=== PATIENT | male | born 1935 | race Caucasian/White ===

== ENCOUNTER 2021-02-07 11:29 | Inpatient (IN) | payer MEDICARE, BC ==
[~2021-02-07] VITALS: Ht 165.1 cm; Wt 88.2 kg
[2021-02-07] MEDS ORDERED: methylPREDNISolone SOD SUCC 125 MG/2 ML VL IV ONE (12:00)
[2021-02-07] MEDS ORDERED: AZITHROMYCIN 500MG/ 250ML 250 ML IV ONE (12:00)
[2021-02-07] MEDS ORDERED: ACETAMINOPHEN 500 MG TAB PO ONE ×2 (12:09→12:30)
[2021-02-07] MEDS ORDERED: REMDESIVIR PER PHARMACY 0 ML IV SCH (13:30)
[2021-02-07 14:27] LABS: Basophils # (auto) 0 10 ^3/uL (0-0.2); Basophils % (auto) 0.2 % (0.0-2.0); Eosinophils # (auto) 0 10 ^3/uL (0-0.8); Eosinophils % (auto) 0.1 % (0.0-7.0); Hematocrit 36.5 % (41.0-53.0); Hemoglobin 12.6 g/dL (13.5-17.5); Lymphocytes # (auto) 0.3 10 ^3/uL (0.4-5.4); Lymphocytes % (auto) 6.9 % (10.0-50.0); Mean Corpuscular Hemoglobin 31.5 pg (28.0-32.0); Mean Corpuscular Hgb Conc. 34.4 g/dL (32.0-36.0); Mean Corpuscular Volume 91.8 fL (80.0-100.0); Monocytes # (auto) 0.2 10 ^3/uL (0-1.3); Monocytes % (auto) 3.5 % (0.0-12.0); Neutrophils # (auto) 4.5 10 ^3/uL (1.6-8.6); Neutrophils % (auto) 89.3 % (37.0-80.0); Nucleated Red Blood Cells % 0.1 %; Red Blood Cells 3.98 10^6/uL (4.5-5.90); Red Cell Distribution Width 13.5 % (11.8-14.3)
[2021-02-07 14:31] LABS: Albumin 2.4 g/dL (3.4-5.0); Anion Gap 5 (5-15); Blood Urea Nitrogen 22 mg/dL (7-18); Calcium 8.2 mg/dL (8.5-10.1); Carbon Dioxide 26 mmol/L (21-32); Chloride 105 mmol/L (98-107); Glucose 137 mg/dL (74-106); Potassium 3.9 mmol/L (3.5-5.1); Sodium 136 mmol/L (136-145)
[2021-02-07 14:39] LABS: Alanine Aminotransferase 92 U/L (16-61); Alkaline Phosphatase 56 U/L (45-117); Aspartate Aminotransferase 119 U/L (15-37); BUN/Creatinine Ratio 23.4; Bilirubin, Total 1.2 mg/dL (0.2-1.0); GFR African American 98 mL/min; GFR Non-African American 81 mL/min; Total Protein 6.4 g/dL (6.4-8.2)
[2021-02-07 14:49] LABS: CRP High Sensitivity > 19.0 mg/dL (< 0.3)
[2021-02-07] MEDS ORDERED: MORPHINE SULFATE INJECTION 2 MG/ML SYRG IV PRN ×3 (15:30→18:15)
[2021-02-07] MEDS ORDERED: NITROGLYCERIN 0.4 MG SL TAB SL PRN ×2 (15:30→18:15)
[2021-02-07] MEDS ORDERED: REMDESIVIR 200 MG in NS 210ml LOADING DOSE ADULT IV ONE (18:00)
[2021-02-07] MEDS ORDERED: ENOXAPARIN SOD 100 MG/1 ML SYRINGE SC ONE (18:00)
[2021-02-07] MEDS ORDERED: FAMOTIDINE (10MG/ML) 2ML VL IV ONE (18:00)
[2021-02-07] MEDS: ALBUMIN 25% 100 ML IV SCH (18:00)
[2021-02-07] MEDS ORDERED: ALBUMIN 25% 100 ML IV ONE (18:00)
[2021-02-07] MEDS ORDERED: DOCUSATE SOD 100 MG CAP PO PRN (18:15)
[2021-02-07] MEDS ORDERED: hydrALAZINE HCL 20 MG/ML VL IV PRN (18:15)
[2021-02-07] MEDS ORDERED: METOCLOPRAMIDE HCL 5MG/ml INJ 2ml VIAL IV PRN (18:15)
[2021-02-07] MEDS ORDERED: HYDROcodone-ACET 5/325MG TAB PO PRN (18:15)
[2021-02-07] MEDS ORDERED: ALUM & MAG HYDROX-SIMETH LIQ(MAALOX) 30 ML PO PRN (18:15)
[2021-02-07] MEDS: FUROSEMIDE 20 MG/2 ML VIAL IV SCH (18:47)
[2021-02-07 18:48] LABS: Cholesterol 97 mg/dL (< 200)
[2021-02-07 18:53] LABS: HDL Cholesterol 44 mg/dL (40-59); LDL Cholesterol 51 mg/dL (< 100); Triglycerides 62 mg/dL (< 150)
[2021-02-07 18:55] LABS: Thyroid Stimulating Hormone 0.44 uIU/mL (0.358-3.74)
[2021-02-07] MEDS: BUDESONIDE (INHALATION) 180 MCG IH IN SCH (22:00)
[2021-02-07] MEDS: DOXYCYCLINE 100MG/250ML 250 ML IV SCH (22:00)
[2021-02-07] MEDS: ISOSORBIDE MONONITRATE 20 MG TAB PO SCH (22:00)
[2021-02-07] MEDS: POTASSIUM CHL 20 Meq TABLET PO SCH (22:00)
[2021-02-07] MEDS: ATORVASTATIN 20 MG TAB PO SCH (22:00)
[2021-02-07] MEDS: FAMOTIDINE (10MG/ML) 2ML VL IV SCH (22:17)
[2021-02-07] MEDS: LORazepam 0.5 MG TAB PO PRN (22:19)
[2021-02-08] MEDS: ALBUMIN 25% 100 ML IV SCH ×2 (02:00→10:00)
[2021-02-08] MEDS ORDERED: ALBUMIN 25% 50 ML IV ONE (02:28)
[2021-02-08] MEDS: FUROSEMIDE 20 MG/2 ML VIAL IV SCH ×2 (06:07→19:05)
[2021-02-08] MEDS: ENOXAPARIN SOD 100 MG/1 ML SYRINGE SC SCH ×2 (06:07→18:00)
[2021-02-08] MEDS: ALBUTEROL SULF HFA 90MCG INH 200DOSE IN PRN ×2 (06:48→21:42)
[2021-02-08] MEDS: BUDESONIDE (INHALATION) 180 MCG IH IN SCH ×2 (06:49→21:42)
[2021-02-08 07:09] LABS: Basophils # (auto) 0.1 10 ^3/uL (0-0.2); Basophils % (auto) 1.3 % (0.0-2.0); Eosinophils # (auto) 0 10 ^3/uL (0-0.8); Eosinophils % (auto) 0.1 % (0.0-7.0); Hematocrit 38.3 % (41.0-53.0); Hemoglobin 13.3 g/dL (13.5-17.5); Lymphocytes # (auto) 0.6 10 ^3/uL (0.4-5.4); Lymphocytes % (auto) 11.2 % (10.0-50.0); Mean Corpuscular Hgb Conc. 34.6 g/dL (32.0-36.0); Mean Corpuscular Volume 92.7 fL (80.0-100.0); Monocytes # (auto) 0.2 10 ^3/uL (0-1.3); Monocytes % (auto) 3.2 % (0.0-12.0); Neutrophils # (auto) 4.6 10 ^3/uL (1.6-8.6); Neutrophils % (auto) 84.2 % (37.0-80.0); Nucleated Red Blood Cells % 0.1 %; Red Blood Cells 4.14 10^6/uL (4.5-5.90); Red Cell Distribution Width 13.5 % (11.8-14.3); White Blood Cell 5.5 10^3/uL (4.4-10.8)
[2021-02-08 07:26] LABS: Potassium 3.8 mmol/L (3.5-5.1)
[2021-02-08 07:36] LABS: Albumin 3.1 g/dL (3.4-5.0); BUN/Creatinine Ratio 29.3; Bilirubin, Total 1.2 mg/dL (0.2-1.0); Calcium 8.4 mg/dL (8.5-10.1)
[2021-02-08] MEDS: DexAMETHasone SOD PHOS 10MG/1ML VIAL INJ IV SCH (11:11)
[2021-02-08] MEDS: ISOSORBIDE MONONITRATE 20 MG TAB PO SCH ×2 (11:11→22:41)
[2021-02-08] MEDS: DOXYCYCLINE 100MG/250ML 250 ML IV SCH ×2 (11:11→22:39)
[2021-02-08] MEDS: ZINC SULFATE 220mg CAP or TAB PO SCH (11:11)
[2021-02-08] MEDS: FAMOTIDINE (10MG/ML) 2ML VL IV SCH ×2 (11:11→22:38)
[2021-02-08] MEDS: ASPirin 81 mg TAB PO SCH (11:11)
[2021-02-08] MEDS: ASCORBIC ACID 1,000 MG TAB PO SCH (11:12)
[2021-02-08] MEDS: POTASSIUM CHL 20 Meq TABLET PO SCH ×2 (11:12→22:41)
[2021-02-08] MEDS: CHOLECALCIFEROL (VITD3) 2,000 UNIT CAP/TAB PO SCH (11:12)
[2021-02-08] MEDS: IVERMECTIN 3 MG TAB PO SCH (11:12)
[2021-02-08] MEDS ORDERED: REMDESIVIR 100mg 100 MG in SODIUM CHL 0.9% 230 ML IV SCH (15:00)
[2021-02-08] MEDS: LORazepam 0.5 MG TAB PO PRN (16:38)
[2021-02-08] MEDS: ACETAMINOPHEN 500 MG TAB PO PRN (22:00)
[2021-02-08] MEDS: ATORVASTATIN 20 MG TAB PO SCH (22:41)
[2021-02-08 23:26] VITALS: BP 136/89
[2021-02-09] VITALS (7 sets, daily range): BP systolic 98–175; BP diastolic 58–92
[2021-02-09] MEDS: LORazepam 0.5 MG TAB PO PRN (00:29)
[2021-02-09] MEDS: ENOXAPARIN SOD 100 MG/1 ML SYRINGE SC SCH ×2 (05:23→18:37)
[2021-02-09] MEDS: FUROSEMIDE 20 MG/2 ML VIAL IV SCH (05:23)
[2021-02-09] MEDS: BUDESONIDE (INHALATION) 180 MCG IH IN SCH ×2 (06:30→19:10)
[2021-02-09 07:48] LABS: Albumin 2.8 g/dL (3.4-5.0); Calcium 8.4 mg/dL (8.5-10.1)
[2021-02-09 07:52] LABS: BUN/Creatinine Ratio 28.8; Total Protein 6.1 g/dL (6.4-8.2)
[2021-02-09] MEDS: ALBUTEROL SULF HFA 90MCG INH 200DOSE IN PRN ×2 (08:42→22:44)
[2021-02-09] MEDS: DOXYCYCLINE 100MG/250ML 250 ML IV SCH ×2 (10:26→21:55)
[2021-02-09] MEDS: DexAMETHasone SOD PHOS 10MG/1ML VIAL INJ IV SCH (10:26)
[2021-02-09] MEDS: FAMOTIDINE (10MG/ML) 2ML VL IV SCH ×2 (10:26→21:55)
[2021-02-09] MEDS: ZINC SULFATE 220mg CAP or TAB PO SCH (10:27)
[2021-02-09] MEDS: ASCORBIC ACID 1,000 MG TAB PO SCH (10:27)
[2021-02-09] MEDS: IVERMECTIN 3 MG TAB PO SCH (10:28)
[2021-02-09] MEDS: ASPirin 81 mg TAB PO SCH (10:28)
[2021-02-09] MEDS: POTASSIUM CHL 20 Meq TABLET PO SCH (10:29)
[2021-02-09] MEDS: CHOLECALCIFEROL (VITD3) 2,000 UNIT CAP/TAB PO SCH (10:29)
[2021-02-09] MEDS: ISOSORBIDE MONONITRATE 20 MG TAB PO SCH ×2 (10:31→22:49)
[2021-02-09] MEDS: LABETALOL HCL 5 MG/ML 4ML SYRINGE IV PRN (13:50)
[2021-02-09] MEDS: ACETAMINOPHEN 500 MG TAB PO PRN (16:02)
[2021-02-09] MEDS ORDERED: HALOPERIDOL LACTATE 5 MG/ML INJ VIAL IM PRN (16:30)
[2021-02-09] MEDS: cloNIDine 0.1 mg/24hr 7 DAY PATCH TD SCH (16:30)
[2021-02-09 20:50] LABS: Urine Bacteria NONE SEEN /hpf (None Seen); Urine Blood 3+ /uL (Negative); Urine Hyaline Cast FEW /lpf (0 - 2); Urine Mucus FEW (None Seen); Urine Specific Gravity 1.025 (1.001-1.035); Urine WBC 9 /hpf (0 - 3)
[2021-02-09 20:51] LABS: Amphetamine Screen, Urine NEGATIVE (NEGATIVE); Barbiturate Scree,Urine NEGATIVE (NEGATIVE); Benzodiazephine Screen, Urine NEGATIVE (NEGATIVE); Cannabinoid Screen, Urine NEGATIVE (NEGATIVE); Cocaine Screen, Urine NEGATIVE (NEGATIVE); Opiate Scree,Urine NEGATIVE (NEGATIVE); Phencyclidine Screen, Urine NEGATIVE (NEGATIVE)
[2021-02-09] MEDS: ATORVASTATIN 20 MG TAB PO SCH (22:49)
[2021-02-10 05:00] VITALS: BP 171/86
[2021-02-10] MEDS: ENOXAPARIN SOD 100 MG/1 ML SYRINGE SC SCH ×2 (05:21→18:06)
[2021-02-10] MEDS: LABETALOL HCL 5 MG/ML 4ML SYRINGE IV PRN (05:30)
[2021-02-10 09:00] VITALS: BP 155/93
[2021-02-10] MEDS: ALBUTEROL SULF HFA 90MCG INH 200DOSE IN PRN ×2 (09:28→21:02)
[2021-02-10] MEDS: BUDESONIDE (INHALATION) 180 MCG IH IN SCH ×2 (09:28→18:37)
[2021-02-10] MEDS: DexAMETHasone SOD PHOS 10MG/1ML VIAL INJ IV SCH (10:13)
[2021-02-10] MEDS: FAMOTIDINE (10MG/ML) 2ML VL IV SCH ×2 (10:13→23:16)
[2021-02-10] MEDS: DOXYCYCLINE 100MG/250ML 250 ML IV SCH ×2 (10:14→23:15)
[2021-02-10] MEDS: IVERMECTIN 3 MG TAB PO SCH (10:16)
[2021-02-10] MEDS: ASPirin 81 mg TAB PO SCH (10:46)
[2021-02-10] MEDS: ZINC SULFATE 220mg CAP or TAB PO SCH (10:46)
[2021-02-10] MEDS: ISOSORBIDE MONONITRATE 20 MG TAB PO SCH ×2 (10:47→23:15)
[2021-02-10] MEDS: ASCORBIC ACID 1,000 MG TAB PO SCH (10:47)
[2021-02-10] MEDS: CHOLECALCIFEROL (VITD3) 2,000 UNIT CAP/TAB PO SCH (10:47)
[2021-02-10 13:00] VITALS: BP 122/81
[2021-02-10 13:29] LABS: Calcium 8.2 mg/dL (8.5-10.1)
[2021-02-10 13:36] LABS: Albumin 2.5 g/dL (3.4-5.0); BUN/Creatinine Ratio 35.6; Bilirubin, Total 1.1 mg/dL (0.2-1.0); Total Protein 5.5 g/dL (6.4-8.2)
[2021-02-10 17:00] VITALS: BP 134/73
[2021-02-10 20:00] VITALS: BP 178/89
[2021-02-10 22:00] VITALS: BP 178/89
[2021-02-10] MEDS: ATORVASTATIN 20 MG TAB PO SCH (23:16)
[2021-02-11] VITALS (9 sets, daily range): BP systolic 140–183; BP diastolic 77–96
[2021-02-11] MEDS: ALBUTEROL SULF HFA 90MCG INH 200DOSE IN PRN ×2 (05:54→20:10)
[2021-02-11] MEDS: BUDESONIDE (INHALATION) 180 MCG IH IN SCH ×3 (05:54→20:10)
[2021-02-11] MEDS: ENOXAPARIN SOD 100 MG/1 ML SYRINGE SC SCH (06:40)
[2021-02-11 09:16] LABS: Basophils # (auto) 0 10 ^3/uL (0-0.2); Basophils % (auto) 0.3 % (0.0-2.0); Eosinophils # (auto) 0 10 ^3/uL (0-0.8); Hematocrit 36.8 % (41.0-53.0); Hemoglobin 12.8 g/dL (13.5-17.5); Lymphocytes # (auto) 0.7 10 ^3/uL (0.4-5.4); Lymphocytes % (auto) 9.3 % (10.0-50.0); Mean Corpuscular Hemoglobin 32.3 pg (28.0-32.0); Mean Corpuscular Hgb Conc. 34.6 g/dL (32.0-36.0); Mean Corpuscular Volume 93.4 fL (80.0-100.0); Monocytes # (auto) 0.2 10 ^3/uL (0-1.3); Monocytes % (auto) 3.2 % (0.0-12.0); Neutrophils # (auto) 6.1 10 ^3/uL (1.6-8.6); Neutrophils % (auto) 87.2 % (37.0-80.0); Nucleated Red Blood Cells % 0.2 %; Red Blood Cells 3.94 10^6/uL (4.5-5.90); Red Cell Distribution Width 13.2 % (11.8-14.3)
[2021-02-11 09:19] LABS: Albumin 2.7 g/dL (3.4-5.0); Calcium 8.7 mg/dL (8.5-10.1)
[2021-02-11 09:23] LABS: Bilirubin, Total 1.1 mg/dL (0.2-1.0); Total Protein 6.1 g/dL (6.4-8.2)
[2021-02-11] MEDS: ASCORBIC ACID 1,000 MG TAB PO SCH (10:00)
[2021-02-11] MEDS: ASPirin 81 mg TAB PO SCH (10:00)
[2021-02-11] MEDS: CHOLECALCIFEROL (VITD3) 2,000 UNIT CAP/TAB PO SCH (10:00)
[2021-02-11] MEDS: ISOSORBIDE MONONITRATE 20 MG TAB PO SCH ×2 (10:00→22:29)
[2021-02-11] MEDS: ZINC SULFATE 220mg CAP or TAB PO SCH (10:00)
[2021-02-11] MEDS: IVERMECTIN 3 MG TAB PO SCH ×2 (10:00→18:45)
[2021-02-11] MEDS: amLODIPine BESYLATE 5 MG TAB PO SCH (10:00)
[2021-02-11] MEDS: DOXYCYCLINE 100MG/250ML 250 ML IV SCH ×2 (10:04→22:29)
[2021-02-11] MEDS: DexAMETHasone SOD PHOS 10MG/1ML VIAL INJ IV SCH (10:04)
[2021-02-11] MEDS: FAMOTIDINE (10MG/ML) 2ML VL IV SCH ×2 (10:04→22:29)
[2021-02-11] MEDS: LABETALOL HCL 5 MG/ML 4ML SYRINGE IV PRN ×3 (10:07→16:47)
[2021-02-11] MEDS: ENOXAPARIN SOD 40 MG/0.4 ML SYRINGE SC SCH (10:11)
[2021-02-11] MEDS: ATORVASTATIN 20 MG TAB PO SCH (22:29)
[2021-02-12] VITALS (8 sets, daily range): BP systolic 126–181; BP diastolic 67–100
[2021-02-12] MEDS: ALBUTEROL SULF HFA 90MCG INH 200DOSE IN PRN (05:36)
[2021-02-12] MEDS: BUDESONIDE (INHALATION) 180 MCG IH IN SCH ×2 (05:37→19:11)
[2021-02-12] MEDS: CHOLECALCIFEROL (VITD3) 2,000 UNIT CAP/TAB PO SCH (10:00)
[2021-02-12] MEDS: ZINC SULFATE 220mg CAP or TAB PO SCH (10:00)
[2021-02-12] MEDS: amLODIPine BESYLATE 5 MG TAB PO SCH (10:00)
[2021-02-12] MEDS: ASCORBIC ACID 1,000 MG TAB PO SCH (10:00)
[2021-02-12] MEDS: ISOSORBIDE MONONITRATE 20 MG TAB PO SCH ×2 (10:00→22:05)
[2021-02-12] MEDS: ASPirin 81 mg TAB PO SCH (10:00)
[2021-02-12] MEDS: FAMOTIDINE (10MG/ML) 2ML VL IV SCH ×2 (10:36→22:05)
[2021-02-12] MEDS: DexAMETHasone SOD PHOS 10MG/1ML VIAL INJ IV SCH (10:36)
[2021-02-12] MEDS: ENOXAPARIN SOD 40 MG/0.4 ML SYRINGE SC SCH (10:38)
[2021-02-12] MEDS: cloNIDine 0.1 mg/24hr 7 DAY PATCH TD SCH (10:47)
[2021-02-12] MEDS: DOXYCYCLINE 100MG/250ML 250 ML IV SCH (13:03)
[2021-02-12] MEDS: LABETALOL HCL 5 MG/ML 4ML SYRINGE IV PRN (13:13)
[2021-02-12] MEDS: ATORVASTATIN 20 MG TAB PO SCH (22:05)
[2021-02-13] VITALS (7 sets, daily range): BP systolic 144–176; BP diastolic 79–94
[2021-02-13] MEDS: LABETALOL HCL 5 MG/ML 4ML SYRINGE IV PRN ×2 (06:46→09:54)
[2021-02-13] MEDS: DexAMETHasone SOD PHOS 10MG/1ML VIAL INJ IV SCH (09:53)
[2021-02-13] MEDS: FAMOTIDINE (10MG/ML) 2ML VL IV SCH ×2 (09:53→22:04)
[2021-02-13] MEDS: ENOXAPARIN SOD 40 MG/0.4 ML SYRINGE SC SCH (09:54)
[2021-02-13] MEDS: ZINC SULFATE 220mg CAP or TAB PO SCH (10:00)
[2021-02-13] MEDS: ISOSORBIDE MONONITRATE 20 MG TAB PO SCH ×2 (10:00→22:08)
[2021-02-13] MEDS: ASPirin 81 mg TAB PO SCH (10:00)
[2021-02-13] MEDS: CHOLECALCIFEROL (VITD3) 2,000 UNIT CAP/TAB PO SCH (10:00)
[2021-02-13] MEDS: amLODIPine BESYLATE 5 MG TAB PO SCH (10:00)
[2021-02-13] MEDS: ASCORBIC ACID 1,000 MG TAB PO SCH (10:00)
[2021-02-13] MEDS: ATORVASTATIN 20 MG TAB PO SCH (22:08)
[2021-02-14 04:37] VITALS: BP 140/84
[2021-02-14] MEDS: ALBUTEROL SULF HFA 90MCG INH 200DOSE IN PRN (06:58)
[2021-02-14 08:30] VITALS: BP 114/95
[2021-02-14] MEDS: ZINC SULFATE 220mg CAP or TAB PO SCH (10:00)
[2021-02-14] MEDS: ASCORBIC ACID 1,000 MG TAB PO SCH (10:00)
[2021-02-14] MEDS: CHOLECALCIFEROL (VITD3) 2,000 UNIT CAP/TAB PO SCH (10:00)
[2021-02-14] MEDS: ENOXAPARIN SOD 40 MG/0.4 ML SYRINGE SC SCH (10:00)
[2021-02-14] MEDS: ASPirin 81 mg TAB PO SCH (10:00)
[2021-02-14] MEDS: ISOSORBIDE MONONITRATE 20 MG TAB PO SCH (10:00)
[2021-02-14] MEDS: amLODIPine BESYLATE 5 MG TAB PO SCH (10:00)
[2021-02-14] MEDS: DexAMETHasone SOD PHOS 10MG/1ML VIAL INJ IV SCH (10:56)
[2021-02-14] MEDS: FAMOTIDINE (10MG/ML) 2ML VL IV SCH ×2 (10:56→11:39)
[2021-02-14 12:35] VITALS: BP 131/78
[2021-02-14 15:19] VITALS: BP 131/78
[2021-02-14 16:00] VITALS: BP 140/84
== END 2021-02-14 17:38 | disposition hospice, home (50) | DRG 871 ==
LOC: ER 11:29 → TELE 15:16 → TELE-E-ADS 02-08 21:51
PROVIDERS: ADMIT Hospitalist; ATTEND Internal Medicine
PROC: 5A0935A Assistance with Respiratory Ventilation, Less than 24 Consecutive Hours, High Flow/Velocity Cannula (ICD-10-PCS; principal; 2021-02-08)
PROC: 05HD33Z Insertion of Infusion Device into Right Cephalic Vein, Percutaneous Approach (ICD-10-PCS; 2021-02-09)
PROC: B54MZZA Ultrasonography of Right Upper Extremity Veins, Guidance (ICD-10-PCS; 2021-02-09)
DX: A41.89 Other specified sepsis (principal); N17.0 Acute kidney failure with tubular necrosis; U07.1 COVID-19; J12.82 Pneumonia due to coronavirus disease 2019; J96.01 Acute respiratory failure with hypoxia; I50.33 Acute on chronic diastolic (congestive) heart failure; I21.A1 Myocardial infarction type 2; F05 Delirium due to known physiological condition; E44.0 Moderate protein-calorie malnutrition; D89.839 Cytokine release syndrome, grade unspecified; I25.10 Atherosclerotic heart disease of native coronary artery without angina pectoris; R62.7 Adult failure to thrive; I11.0 Hypertensive heart disease with heart failure; E78.5 Hyperlipidemia, unspecified; Z53.29 Procedure and treatment not carried out because of patient's decision for other reasons; F02.80 Dementia in other diseases classified elsewhere, unspecified severity, without behavioral disturbance, psychotic disturbance, mood disturbance, and anxiety; G30.9 Alzheimer's disease, unspecified; Z92.21 Personal history of antineoplastic chemotherapy; Z90.49 Acquired absence of other specified parts of digestive tract; Z82.49 Family history of ischemic heart disease and other diseases of the circulatory system; Z68.33 Body mass index [BMI] 33.0-33.9, adult
CPT/HCPCS: 36415; 36600; 71045; 80053; 80061; 80307; 81001; 82306; 82728; 82805; 83036; 83605; 83615; 83735; 83880; 84443; 84484; 85025; 85379; 86141; 87040; 87086; 87426; 93005; 93306; 94640; 96365; 96375; 99291; G0378; J1100; J3490; P9047